=== PATIENT | female | born 1980 | race Caucasian/White ===

== ENCOUNTER 2020-03-28 18:37 | Emergency (ER) | payer MEDICAID ==
[~2020-03-28] VITALS: Ht 162.6 cm; Wt 61.2 kg
--- NOTE | 2020-03-28 18:37 | NUR ---
BALTAZAR 38 from home for psych eval, per ems report, patient put soap and toys on her baby's nursing bottle according the , RR even and uinlabored, no apparent distress noted. Sitter at bedside. awaiting MD saeed
--- NOTE | 2020-03-28 18:43 | NUR ---
Dr Snow at bedside
[2020-03-28 19:12] LABS: BASOPHILS % (AUTO) 0.3 % (0.0-2.0); EOSINOPHILS % (AUTO) 0.9 % (0.0-6.0); HEMATOCRIT 41 % (33-45); HEMOGLOBIN 13.5 g/dL (11.5-14.8); LYMPHOCYTES # (AUTO) 1.9 /CMM (0.8-4.8); MEAN CORPUSCULAR HGB CONC 33 g/dl (31.0-36.0); MEAN CORPUSCULAR VOLUME 91 fL (82-100); MONOCYTES # (AUTO) 0.6 /CMM (0.1-1.30); MONOCYTES % (AUTO) 5.8 % (2.0-12.0); PLATELET COUNT (AUTO) 266 /CMM (150-450); RED BLOOD CELL COUNT(AUTO) 4.51 MIL/uL (4.0-5.2); WHITE BLOOD COUNT (AUTO) 9.6 K/uL (4.3-11.0)
[2020-03-28 19:19] LABS: CALCIUM, SERUM 8.8 mg/dL (8.5-10.1); CARBON DIOXIDE 25 mmol/L (21-32); CHLORIDE 105 mmol/L (98-107); CREATININE 0.7 mg/dL (0.6-1.3); GLUCOSE 100 mg/dL (74-106); POTASSIUM 3.6 mmol/L (3.5-5.1); SODIUM SERUM 140 mmol/L (136-145); UREA NITROGEN, BLOOD 13 mg/dL (7-18)
[2020-03-28 19:24] LABS: ALANINE AMINOTRANSFERASE 16 U/L (12-78); ALBUMIN 3.8 g/dL (3.4-5.0); ALKALINE PHOSPHATASE 66 U/L (46-116); ASPARTATE AMINOTRANSFERASE 11 U/L (15-37); BILIRUBIN,DIRECT 0.1 mg/dL (0.0-0.2); BILIRUBIN,TOTAL 0.3 mg/dL (0.2-1.0); TOTAL PROTEIN, SERUM 6.8 g/dL (6.4-8.2)
--- NOTE | 2020-03-28 19:27 | NUR ---
Report given to Reji CUMMINGS for KATALINA
[2020-03-28 19:29] LABS: ACETAMINOPHEN < 2 ug/ml (10-30); ALCOHOL, BLOOD < 3 mg/dL (0-0); SALICYLATE 0.8 mg/dL (2.8-20.0)
--- NOTE | 2020-03-28 19:37 | NUR ---
URINE COLLECTED AND SENT TO LAB/ PT IN BED COMFORTABLY. VSS.
[2020-03-28 19:42] LABS: APPEARANCE,URINE Clear (CLEAR); BILIRUBIN,URINE Negative (NEGATIVE); BLOOD, URINE Trace-intact Ery/uL (NEGATIVE); COLOR,URINE Yellow (YELLOW); KETONES,URINE Negative (NEGATIVE); LEUKOCYTE ESTERASE ,URINE Negative (NEGATIVE); NITRITE, URINE Negative (NEGATIVE); PH,URINE 6.5 (5.0-8.0); PROTEIN,URINE Negative (NEGATIVE); UGLUCOSE Negative (NEGATIVE); UROBILINOGEN,URINE 0.2 EU/dL (0.2)
[2020-03-28 19:53] LABS: BACTERIA,URINE Rare /HPF (None Seen); SQUAMOUS EPITHELIAL CELL,UR Few /HPF (None Seen); WBC,URINE NONE SEEN /HPF (0-3)
--- NOTE | 2020-03-28 20:44 | NUR ---
PT MEDICALLY CLEARED FOR PSYCH EVAL PER ER MD.
--- NOTE | 2020-03-28 21:41 | NUR ---
GEOFFREY HERNANDES RN [employer] AT BEDSIDE TO ROSS PT.
--- NOTE | 2020-03-28 21:46 | NUR ---
Patient is resting comfortably in bed. Easily aroused. VSS.
--- NOTE | 2020-03-28 22:09 | NUR ---
Patient is resting comfortably in bed. Easily aroused. VSS.
--- NOTE | 2020-03-29 00:45 | NUR ---
PATIENT AMBULATED TO THE RESTROOM. VSS.
--- NOTE | 2020-03-29 00:47 | NUR ---
PT ACCEPTED AT [facility] ACCEPTING MD ELKINS PT WIIL GO TO ROOM [id number] PHONE # FOR REPORT PLEASE ARRANGE TRANSFER AFTER 0700AM.
--- NOTE | 2020-03-29 00:47 | NUR ---
Franck fuchs in ED - 03/29/20 at 0051 by LEENA PT ACCEPTED AT [facility] MD BRITTNI LA GO TO ROOM [facility] PLEASE ARRANGE TRANSFER AFTER 0700AM.
--- NOTE | 2020-03-29 00:55 | NUR ---
TRANSPORT CALLED ([facility]) ETA 0700AM.
--- NOTE | 2020-03-29 01:19 | NUR ---
REPORT GIVEN TO JERRY CUMMINGS FOR KATALINA
--- NOTE | 2020-03-29 04:28 | NUR ---
PT AMBULATED TO THE RESTROOM
--- NOTE | 2020-03-29 06:12 | NUR ---
PT RESTING COMFORTABLY IN BED. CALL LIGHT WITHIN REACH.VSS. SITTER AT BEDSIDE FOR SAFETY
[2020-03-29 06:44] VITALS: BP 101/72
--- NOTE | 2020-03-29 07:16 | NUR ---
TRANSPORT AT BEDSIDE REPORT GIVEN TO EMT.
== END 2020-03-29 07:18 ==
LOC: ER 18:42
DX: F29 Unspecified psychosis not due to a substance or known physiological condition (principal)
CPT/HCPCS: 36415; 80048; 80076; 80305; 80307; 80329; 81001; 84703; 85025; 99285; G0480; 81000-TC